=== PATIENT | male | born 1995 | race African-American/Black ===

== ENCOUNTER 2022-12-17 06:17 | Emergency (ER) | payer OTHER ==
[~2022-12-17] VITALS: Ht 190.5 cm; Wt 78.2 kg
[2022-12-17 06:21] VITALS: TEMP 97.2
[2022-12-17 07:28] LABS: ALBUMIN 4.2 gm/dL (3.5-5.0); BILIRUBIN,TOTAL 0.8 mg/dL (0.2-1.2); C-REACTIVE PROTEIN 0.1 mg/dL (0.00-0.50); CALCIUM 9.8 mg/dL (8.4-10.2); CREATININE, serum 1.14 mg/dL (0.72-1.25); POTASSIUM 3.7 mmol/L (3.5-4.5); TOTAL PROTEIN 8.1 gm/dL (6.2-8.1)
[2022-12-17] MEDS ORDERED: REGLAN 10MG10 MG/TAB PO (07:37)
[2022-12-17] MEDS ORDERED: CARAFATE 1GM1 G PO (07:37)
[2022-12-17 07:51] LABS: BASO # 0.1 K/mm3 (0.0-0.2); BASO % 1.5 % (0.0-2.0); EOS % 1.2 % (0.0-4.0); GRAN # 1.4 K/mm3 (1.4-6.5); GRAN % 43.7 % (42.2-75.2); HEMATOCRIT 45.2 % (42.0-52.0); HEMOGLOBIN 15.4 g/dl (13.5-18.0); LYMPH # 1.3 K/mm3 (1.2-3.4); MEAN CELL VOLUME 91 fl (80.0-100.0); MEAN CORPUSCULAR HEMOGLOBIN 31 pg (27-31); MEAN CORPUSCULAR HGB CONC 34 g/dl (33.0-37.0); MEAN PLATELET VOLUME 10.9 fl (7.4-10.4); MONO # 0.4 K/mm3 (0.1-0.6); MONO % 12.3 % (1.7-9.3); PLATELET COUNT 207 K/mm3 (130-400); RED BLOOD COUNT 4.99 M/mm3 (4.20-5.60); REDCELL DISTRIBUTION WIDTH-CV 12.1 % (11.5-14.5)
[2022-12-17 07:55] VITALS: BP 129/95; PULSE 70
== END 2022-12-17 07:56 | disposition home or self-care (01) ==
LOC: COL.ER 06:17
PROVIDERS: Emergency Medicine
DX: R10.13 Epigastric pain (principal); R11.2 Nausea with vomiting, unspecified
CPT/HCPCS: J2765